=== PATIENT | female | born 1965 | race Caucasian/White ===

== ENCOUNTER → 2017-02-11 | Outpatient (CLI) | payer BC ==
--- NOTE | 2017-02-11 15:30 | DIAGNOSTIC IMAGING REPORT ---
LEFT HAND 3 VIEWS HISTORY: OSTEOARTHRITIS OF FIRST CARPOMETACARPAL JOINT, LT COMPARISON: None. FINDINGS: There is no fracture or dislocation. There is a cortical plate transfixed with screws bridging the first carpometacarpal joint. The hardware appears intact. No periprosthetic lucency. There does not appear to be significant fusion at the joint space. Bone mineralization is intact. No erosions identified. The remaining joint spaces are preserved for age. IMPRESSION: Cortical plane and screws bridging the first carpometacarpal joint. The hardware appears intact. Electronically signed by: Oscar Shields M.D. 02/11/2017 3:29 PM Dictated Date/Time: 02/11/2017 3:26 PM
== END | disposition home or self-care (01) ==
LOC: C.RAD1850 14:58
PROVIDERS: ATTEND Orthopaedic Surgery
DX: M18.12 Unilateral primary osteoarthritis of first carpometacarpal joint, left hand (principal); Z09 Encounter for follow-up examination after completed treatment for conditions other than malignant neoplasm

== ENCOUNTER → 2017-03-15 | Outpatient (CLI) | payer BC ==
--- NOTE | 2017-03-15 11:24 | DIAGNOSTIC IMAGING REPORT ---
LEFT THUMB 3 VIEWS HISTORY: UNILATERAL PRIMARY OSTEOARTHRITIS OF FIRST CARPOMETACARPAL J COMPARISON: Left hand 02/25/2017. FINDINGS: No acute fracture dislocation within the left thumb. There is again noted a cortical plate and screws bridging the first carpometacarpal joint. There is no significant bony fusion at this time. There are severe cartilage space narrowing at this joint consistent with degenerative change. The hardware appears intact. No significant periprosthetic lucency. Mild soft tissue swelling at the thumb base. IMPRESSION: 1. Mild soft tissue swelling at the thumb base. 2. No acute fracture or dislocation. 3. Cortical plate and screws bridging the first carpometacarpal joint. There is no definite bony fusion at this time. However, there is severe cartilage space narrowing consistent with degenerative change. Electronically signed by: Oscar Shields M.D. 03/15/2017 11:23 AM Dictated Date/Time: 03/15/2017 11:21 AM
== END | disposition home or self-care (01) ==
LOC: C.RAD1850 11:03
PROVIDERS: ATTEND Orthopaedic Surgery
DX: M18.12 Unilateral primary osteoarthritis of first carpometacarpal joint, left hand (principal)

== ENCOUNTER → 2017-04-01 | Outpatient (CLI) | payer BC | END | disposition home or self-care (01) | LOC: C.RDSM 12:40 | PROVIDERS: ATTEND Orthopaedic Surgery | DX: M18.12 Unilateral primary osteoarthritis of first carpometacarpal joint, left hand (principal) ==

== ENCOUNTER → 2017-04-29 | Outpatient (CLI) | payer BC | END | disposition home or self-care (01) | LOC: C.RDSM 13:09 | PROVIDERS: ATTEND Orthopaedic Surgery | DX: M18.12 Unilateral primary osteoarthritis of first carpometacarpal joint, left hand (principal) ==

== ENCOUNTER → 2017-05-27 | Outpatient (CLI) | payer BC | END | disposition home or self-care (01) | LOC: C.RDSM 18:47 | PROVIDERS: ATTEND Orthopaedic Surgery | DX: M18.12 Unilateral primary osteoarthritis of first carpometacarpal joint, left hand (principal) ==